=== PATIENT | female | born 1960 | race Caucasian/White ===

== ENCOUNTER 2019-05-06 06:56 | Day surgery (SDC) | payer BC, OTHER ==
[2019-05-06] MEDS ORDERED: Lactated Ringers 1,000 ML IV SCH (07:00)
[2019-05-06] MEDS ORDERED: Sodium Chloride 0.9% 10 ML Syringe FLUSH PRN (07:00)
[2019-05-06] MEDS ORDERED: Propofol 200 MG/20 ML SDV ONE ×2 (09:17→10:21)
[2019-05-06] MEDS ORDERED: fentaNYL 100 MCG/2 ML SDV ONE (09:17)
--- NOTE | 2019-05-06 11:05 | OR ---
PREOPERATIVE DIAGNOSES: 1. Family history of colon cancer - mother. 2. Personal history of polyps. POSTOPERATIVE DIAGNOSIS: Normal colonoscopic exam. PROCEDURE PROPOSED: Total flexible colonoscopy. PROCEDURE DONE: Total flexible colonoscopy. INDICATION: This is a 58-year-old female, who comes in for colonic surveillance due to family history of colon cancer in her mother and also she has had a polyp or two on her previous exams. She denies any symptomatology. TECHNIQUE: The patient was brought to the endoscopy suite and placed in left lateral decubitus position. She was sedated per [facility] [facility] with propofol. The flexible video colonoscope was then passed transanally and under visualization advanced to the cecum. Examination revealed normal ascending, transverse, descending, sigmoid, and rectal colon. No evidence of any polyps, diverticulosis, colitis, or other abnormalities, and the scope was then withdrawn. The patient tolerated the procedure well. FINAL IMPRESSION: 1. Normal colonoscopic exam. 2. Family history of colon cancer - mother. 3. Previous history of polyps. PLAN: I feel that she should continue with colonic surveillance every 5 years hereafter due to her family history and personal history. SCM: 05/06/2019 10:36:43 MODL: 05/06/2019 10:58:49 /[id number]
== END 2019-05-06 11:30 | disposition home or self-care (01) ==
LOC: VM.SDS 06:56
PROVIDERS: ATTEND Surgery
DX: Z12.11 Encounter for screening for malignant neoplasm of colon (principal); H52.4 Presbyopia; H52.10 Myopia, unspecified eye; M19.90 Unspecified osteoarthritis, unspecified site; Z86.010 Personal history of colon polyps; Z80.0 Family history of malignant neoplasm of digestive organs; Z79.899 Other long term (current) drug therapy
CPT/HCPCS: 45378; J2704; J3010; J7120

== ENCOUNTER 2024-08-04 07:35 | Day surgery (SDC) | payer BC ==
[2024-08-04] MEDS: Lactated Ringers 1,000 ML IV SCH (08:02)
[2024-08-04] MEDS ORDERED: Propofol 200 MG/20 ML SDV ONE ×2 (08:30→08:46)
[2024-08-04] MEDS ORDERED: fentaNYL 100 MCG/2 ML SDV ONE (08:30)
== END 2024-08-04 10:16 | disposition home or self-care (01) ==
LOC: VM.SDS 07:35
PROVIDERS: ATTEND Family Medicine
DX: D12.0 Benign neoplasm of cecum (principal); Z86.0100 Personal history of colon polyps, unspecified; Z80.0 Family history of malignant neoplasm of digestive organs; M17.0 Bilateral primary osteoarthritis of knee
CPT/HCPCS: J2704; J3010; J7120